=== PATIENT | female | born 1995 | race Caucasian/White ===

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

== ENCOUNTER 2019-07-06 11:14 | Emergency (ER) | payer OTHER ==
[~2019-07-06] VITALS: Ht 162.6 cm; Wt 51.3 kg
[~2019-07-06 11:14] MED LIST: CEPH250C16 PO; IBUP-3232 PO
[2019-07-06 11:18] VITALS: BP 97/58
--- NOTE | 2019-07-06 11:18 | NUR ---
CARRIED TO BED 1 BY MOTHER
--- NOTE | 2019-07-06 11:21 | NUR ---
Raffaele thurman in ED - 07/06/19 at 1122 by MMTHEM Patient ambulated to bed 7. RN evaluating patient at bedside.
--- NOTE | 2019-07-06 11:22 | NUR ---
Patient ambulated to bed 12. RN evaluating patient at bedside.
--- NOTE | 2019-07-06 11:25 | NUR ---
Patient presents to ED with complaints of epigastric pain since this am. Pt states "it feels like I ate something really spicy but I haven't ate anything spicy." Patient also complaining of nausea, denies vomiting. Patient c/o 10/10 pain, epigastric, non radiating, burning sensation upon waking up this am. Pt states she took Advil [employer] with no improvement.
[2019-07-06] MEDS ORDERED: ONDANSETRON 4 MG/2 ML VIAL IVP ONE (11:35)
[2019-07-06] MEDS ORDERED: MORPHINE SULFATE 4 MG/ML SYR IVP ONE (11:35)
[2019-07-06] MEDS ORDERED: NACL 0.9% 1,000 ML IV ONE (11:35)
--- NOTE | 2019-07-06 12:04 | NUR ---
Ultrasound at bedside.
[2019-07-06 12:09] LABS: APPEARANCE,URINE CLEAR (CLEAR); BILIRUBIN,URINE NEGATIVE (NEGATIVE); BLOOD, URINE 3+ (NEGATIVE); COLOR,URINE YELLOW (YELLOW); LEUKOCYTE ESTERASE ,URINE NEGATIVE (NEGATIVE); NITRITE, URINE NEGATIVE (NEGATIVE); UGLUCOSE NEGATIVE (NEGATIVE)
[2019-07-06 12:10] LABS: BASOPHILS % (AUTO) 0.4 % (0.0-2.0); EOSINOPHILS # (AUTO) 0.1 K/uL (0-0.4); EOSINOPHILS % (AUTO) 0.8 % (0.0-4.0); HEMATOCRIT 43.6 % (36-48); HEMOGLOBIN 14.4 g/dL (12.0-16.0); LYMPHOCYTES % (AUTO) 8.9 % (20.5-51.1); MEAN CORPUSCULAR HEMOGLOBIN 31 pg (27-31); MEAN CORPUSCULAR HGB CONC 33 g/dL (33-37); MEAN CORPUSCULAR VOLUME 92.8 fL (80-94); MONOCYTES # (AUTO) 0.8 K/uL (0.8-1.0); MONOCYTES % (AUTO) 7.2 % (1.7-9.3); NEUTROPHILS # (AUTO) 9.4 K/uL (1.8-7.7); NEUTROPHILS % (AUTO) 82.7 % (42.2-75.2); PLATELET COUNT (AUTO) 309 K/uL (140-450); RED CELL DISTRIBUTION WIDTH 13.6 % (11.6-13.7); WHITE BLOOD COUNT (AUTO) 11.3 K/uL (4.8-10.8)
[2019-07-06 12:24] LABS: WBC,URINE 0-5 /HPF (0-5)
[2019-07-06 12:32] LABS: ALBUMIN 3.9 g/dL (3.4-5.0); CREATININE 0.9 mg/dL (0.6-1.3); TOTAL BILIRUBIN 0.3 mg/dL (0.0-1.0)
--- NOTE | 2019-07-06 13:05 | NUR ---
PT IS RESTING IN THE BED AND STATING SHE FEELS MUCH BETTER AT THIS TIME.
--- NOTE | 2019-07-06 13:40 | NUR ---
NADR, PT REPORTS FEELING 'MUCH BETTER' PAIN 3/10, DECREASED NAUSEA
[2019-07-06 13:42] VITALS: BP 97/58
--- NOTE | 2019-07-06 13:42 | NUR ---
Patient discharged with v/s stable. Written and verbal after care instructions given and explained. Patient alert, oriented and verbalized understanding of instructions. Ambulatory with steady gait. All questions addressed prior to discharge. ID band removed. Patient advised to follow up with PMD. Rx of ZOFRAN, NORCO, AND PEPCID given. Patient educated on indication of medication including possible reaction and side effects. Opportunity to ask questions provided and answered. INSTRUCTED THAT NORCO MAY CAUSE DROWSINESS AND TO NOT DRIVE AFTER TAKING IT PT GIVEN COPY OF LAB AND US RESULTS
== END 2019-07-06 13:42 | disposition home or self-care (01) ==
LOC: MED 11:14
DX: R10.13 Epigastric pain (principal); Z90.49 Acquired absence of other specified parts of digestive tract; Z88.1 Allergy status to other antibiotic agents
CPT/HCPCS: 36415; 76705; 80053; 81001; 81025; 83690; 85025; 96361; 96374; 96375; 99284; J2270; J2405; J7030; Q0092

== ENCOUNTER 2020-09-07 11:46 | Emergency (ER) | payer OTHER ==
[~2020-09-07] VITALS: Ht 162.6 cm; Wt 54.4 kg
[2020-09-07 11:58] VITALS: BP 117/62
--- NOTE | 2020-09-07 12:06 | NUR ---
Patient ambulated to bed 11 with steady/even gait.
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
[2020-09-07] MEDS ORDERED: diphenhydrAMINE 50 MG/ML VIAL IM ONE (12:20)
--- NOTE | 2020-09-07 13:03 | NUR ---
PMH: DENIES ALLERGY: AMOXICILLIN
[2020-09-07] MEDS ORDERED: BACTO TP (13:33)
[2020-09-07 14:00] VITALS: BP 110/60
--- NOTE | 2020-09-07 14:00 | NUR ---
Patient discharged with v/s stable. Written and verbal after care instructions given and explained. Patient alert, oriented and verbalized understanding of instructions. Ambulatory with steady gait. All questions addressed prior to discharge. ID band removed. Patient advised to follow up with PMD. Rx of Mupirocin ointment given. Patient educated on indication of medication including possible reaction and side effects. Opportunity to ask questions provided and answered.
== END 2020-09-07 14:00 | disposition home or self-care (01) ==
LOC: MED 11:46
DX: S91.011A Laceration without foreign body, right ankle, initial encounter (principal); Z88.1 Allergy status to other antibiotic agents; W64.XXXA Exposure to other animate mechanical forces, initial encounter; Y93.89 Activity, other specified; Y92.89 Other specified places as the place of occurrence of the external cause; Y99.8 Other external cause status
CPT/HCPCS: 73610; 90471; 90715; 96372; 99284; J1200